=== PATIENT | female | born 1980 | race African-American/Black ===

== ENCOUNTER 2023-11-08 00:25 | Emergency (ER) | payer MEDICAID ==
[~2023-11-08 00:25] MED LIST: PREN-88 PO
[2023-11-08 00:35] VITALS: TEMP 98.2
[2023-11-08] MEDS ORDERED: NAPR-1176 MT (00:36)
[2023-11-08 00:44] VITALS: PULSE 93; RESP 16
[2023-11-08] MEDS ORDERED: KETOROLAC 30MG/ML VIAL IM ONE (00:45)
== END 2023-11-08 01:04 | disposition home or self-care (01) ==
LOC: ER 00:25
DX: S00.93XA Contusion of unspecified part of head, initial encounter (principal); X58.XXXA Exposure to other specified factors, initial encounter; Y93.89 Activity, other specified; Y92.89 Other specified places as the place of occurrence of the external cause; Y99.8 Other external cause status
CPT/HCPCS: 99283; 96372; J1885